=== PATIENT | male | born 1955 | race American Indian/Alaskan Native ===

== ENCOUNTER 2018-01-03 08:22 | Day surgery (SDC) | payer BC ==
[2018-01-03] MEDS ORDERED: NACL 0.9% 1000 ML 1,000 ML IV SCH (10:00)
--- NOTE | 2018-01-03 10:05 | Anesthesia Consultation ---
Anesthesia Consult and Med Hx Date of service: 01/03/18 - Airway Anesthetic Teeth Evaluation: Partials (upper) ROM Head & Neck: Adequate Mental/Hyoid Distance: Adequate Mallampati Class: Class III Intubation Access Assessment: Possibly Difficult - Pulmonary Exam CTA: Yes - Cardiac Exam Cardiac Exam: RRR - Pre-Operative Health Status ASA Pre-Surgery Classification: ASA3 Proposed Anesthetic Plan: MAC - Pulmonary Hx Asthma: Yes - Cardiovascular System Hx Hypertension: Yes - Other Systems Hx Obesity: Yes
[2018-01-03] MEDS ORDERED: DIPRIVAN 10 MG/ML IV ONE ×2 (10:12)
[2018-01-03] MEDS ORDERED: WATER FOR IRRIG STERILE ONE (10:19)
[2018-01-03] MEDS ORDERED: WATER FOR IRRIG STERILE IR ONE (10:19)
--- NOTE | 2018-01-03 10:47 | Short Stay Summary ---
Short Stay Documentation Date of service: 01/03/18 Narrative H&P: The patient presents for screening colonoscopy. Last study 11 years ago. - History Past Medical History: hypertension, other (Morbid obesity, sleep apnea) Past Surgical History: Other (Joint replacement surgery) Social history: no significant social history, , lives with family, no smoking, no alcohol abuse, no prescription drug abuse - Allergies and Medications Current Medications: Allergies CRYS Inhibitors Adverse Reaction (Verified 01/03/18 09:11) Swelling Home Medications Medication Instructions Recorded Confirmed Last Taken Type ALBUTEROL Inhaler(NF) 2 puff INHALATION PRN PRN 01/03/18 01/03/18 01/03/18 History Alfuzosin HCl ER 10 mg PO DAILY 01/03/18 01/03/18 01/02/18 History Allopurinol 100 mg PO DAILY 01/03/18 01/03/18 01/02/18 History Losartan/Hydrochlorothiazide 1 tab PO DAILY 01/03/18 01/03/18 01/03/18 History [Losartan-Hctz 100-25 mg Tab] Potassium Citrate 10 meq PO BID 01/03/18 01/03/18 01/02/18 History Active Medications Sodium Chloride (Nacl 0.9% 1000 Ml) 1,000 mls @ 50 mls/hr IV DIRECT NATALEE Last Admin: 01/03/18 09:58 Dose: 50 mls/hr - Physical exam General appearance: no acute distress, well-nourished, obese Integumentary: no rash, no growths, no abnormal pigmentation HEENT: Atraumatic, PERRLA, EOMI, Mucous membr. moist/pink Lungs: Clear to auscultation, Normal air movement Breasts: deferred Heart: Regular rate, Normal S1, Normal S2, No murmurs Gastrointestinal: normoactive bowel sounds, no tenderness, no distended, no masses, no guarding, no organomegaly Male Genitourinary: deferred Rectal Exam: normal exam-external/orifice, normal rectal tone Extremities: no ischemia, pulses intact, pulses symmetrical, No edema, normal temperature, normal color, Full ROM Neurological: Normal gait, Normal speech, Strength at 5/5 X4 ext, Normal tone, Sensation intact, Cranial nerves 3-12 NL - Brief post op/procedure progress note Date of procedure: 01/03/18 Findings: see dictated report Estimated blood loss: none Pathology: none Condition: stable - Disposition Condition at discharge: Good Disposition: DC-01 TO HOME OR SELFCARE - Discharge Diagnoses (1) Colon cancer screening Status: Acute (2) Morbid obesity with BMI of 45.0-49.9, adult Status: Acute Short Stay Discharge Plan Activity: other (no driving for 24 hours, call office to schedule AC BE) Weight Bearing Status: Weight Bear as Tolerated Diet: regular Follow up with: SANAZ CASILLAS MD [Primary Care Provider] - 7 Days
--- NOTE | 2018-01-03 10:53 | Operative Report ---
Operative Report Operative Report: Date of procedure: 01/03/2018 Preprocedure diagnosis: Colon cancer screening. Last study over 10 years ago. Post procedure diagnosis: Normal study to the ascending colon, loop formation precluding a complete study. Procedure: Colonoscopy to the ascending colon Endoscopist: Dr. Parikh Anesthesia: Monitored anesthesia care per anesthesia department Estimated blood loss: 0 Medications: Monitored anesthesia care. See separate report by anesthesia for details. After careful discussion of the nature and purpose of the procedure as well as details of the technique risks benefits and alternatives the patient gave consent. Please see recent history and physical from the office. The patient was placed in the left lateral decubitus position and medicated per anesthesia. A rectal exam was performed sphincter tone was normal there were no masses palpable. The BasisCoden 570 scope was passed transanally and advanced under continuous direct vision without difficulty to the ascending colon. Loop formation and inability to splint due to the patient's large body habitus precluded a complete study to the cecum. The colon was well prepared. T The ascending colon was normal. The transverse colon, descending colon, and sigmoid colon were normal. The rectum was normal on forward and retroflexed views. The procedure was well-tolerated overall and the patient was observed in recovery. Conclusions: Normal colonoscopy to the ascending colon. Incomplete study of the right colon due to loop formation and the inability to splint due to the patient's large body habitus. Plan: Air-contrast barium enema as an outpatient within the next 3 months. Repeat colonoscopy in 10 years if this study is normal. Signed electronically: Paresh Parikh M.D.
--- NOTE | 2018-01-03 11:22 | Anesthesia Day of Surgery ---
Anesthesia Day of Surgery - Day of Surgery Patient Examined: Yes Patient H&P Reviewed: Yes Patient is NPO: Yes
[2018-01-03 17:31] VITALS: BP 145/80
== END 2018-01-03 08:23 | disposition home or self-care (01) ==
LOC: GIO 08:22
PROVIDERS: ATTEND Internal Medicine Gastroenterology
DX: Z12.11 Encounter for screening for malignant neoplasm of colon (principal); I10 Essential (primary) hypertension; J45.909 Unspecified asthma, uncomplicated; G47.30 Sleep apnea, unspecified; E66.01 Morbid (severe) obesity due to excess calories; Z68.33 Body mass index [BMI] 33.0-33.9, adult; Z79.899 Other long term (current) drug therapy; Z88.8 Allergy status to other drugs, medicaments and biological substances; Z96.643 Presence of artificial hip joint, bilateral; Z98.890 Other specified postprocedural states
CPT/HCPCS: 45378; J2704; J7030